=== PATIENT | female | born 1990 | race Hispanic/Latino ===

== ENCOUNTER → 2016-08-29 | Emergency (ER) | payer OTHER ==
[2016-06-09 21:22] VITALS: BMI 23.0
== END | disposition home or self-care (01) ==
LOC: H.EROB2 01:56
DX: O47.1 False labor at or after 37 completed weeks of gestation (principal); Z3A.37 37 weeks gestation of pregnancy

== ENCOUNTER 2016-09-18 05:01 | Emergency (ER) | payer OTHER ==
--- NOTE | 2016-09-18 08:39 | OBHP ---
Datetime: 09/18/2016 06:09 IP Adm Impression: Term, intrauterine IP Admit Plan: Observation/Evaluation; Discharge home Admit Comment, IP Provider: presents with ctx and spotting. denies LOF. Good FM. Prental care at [place]. labs: GBS neg, HIV/ RPR neg neg, gc ct neg. Hbsag neg Exam: 1cm, 25, -2 speculum exam: blood tinged discharge a: IUP at 40+1 wks in early labor. p: observe reassuring FHT discharge home labor precautions given Tamy Greene OB Hospitalist note: This pt was seen and examined by me. Agree with above note. MAHNDO Pelvic Type - PN: Adequate Extremities - PN: Normal Abdomen - PN: Normal Back - PN: Not Done Breast - PN: Not Done Lungs - PN: Normal Heart - PN: Normal Thyroid - PN: Normal Neurologic - PN: Normal HEENT - PN: Normal General - PN: Normal FHR - Baseline A Provider: 130s Membranes, Provider: Intact Contraction Comments Provider: occ Comments, ACOG Physical Exam: bedside u/s vertex presentation ROS: General: no weakness; no fatigue HEENT: no CEVALLOS; no visual dist CV: no palpitations; no no CP GI: noN/V no diarhea No epigastric pain; non radiating : no F/U/D MS: No joint pain Pool Provider: Negative IP Hx Assessment: The History has been Reviewed and is Current EGA AdmitDate IP: 40.1 Vital Signs Provider: Reviewed IP Indication for Induction: Not Applicable IP Chief Complaint: Uterine contractions NICHD Variability Prov Fetus A: Moderate 6-25bpm NICHD Decel Fetus A IP Provider: None Dilatation, Provider: 1 Effacement, Provider: 25 Station, Provider: -2 Genitourinary Exam: Normal DTRs - PN: Normal
--- NOTE | 2016-09-18 08:39 | OBDCSUM ---
Datetime: 09/18/2016 06:22 Discharged to, Provider: Home Follow up at, Provider: [facility] for next scheduled appt Disch Instr Activity: Normal activity Disch Instr Diet: Regular Discharge Diagnosis, Provider: False Labor - Undelivered Discharge Time: 09/18/2016 06:22 Follow up in weeks, Provider: this week Disch Referrals: None
[2016-09-18 14:23] VITALS: BMI 26.9
[2016-09-18] MEDS ORDERED: Lactated Ringer's 1,000 ML IV SCH (14:30)
[2016-09-18 14:55] LABS: BASO # 0.1 K/uL (0.0-0.2); BASO % 0.6 % (0.0-2.0); EOS % 0.3 % (0.0-4.0); HEMATOCRIT 34.6 % (34.0-47.0); LYMPH # 1.9 K/uL (1.0-4.3); LYMPH % 14.2 % (20.0-40.0); MEAN CELL VOLUME 82.6 fl (81.0-99.0); MEAN CORPUSCULAR HEMOGLOBIN 27.5 pg (27.0-31.0); MEAN CORPUSCULAR HGB CONC 33.3 g/dL (33.0-37.0); MEAN PLATELET VOLUME 9.7 fl (7.2-11.7); MONO # 0.7 K/uL (0.0-0.8); MONO % 5.1 % (0.0-10.0); NEUT # 10.9 K/uL (1.8-7.0); NEUT % 79.8 % (50.0-75.0); NRBC % 0.1 % (0.0-0.0); RED CELL DISTRIBUTION WIDTH 15.6 % (11.5-14.5); WHITE BLOOD COUNT 13.7 K/uL (4.8-10.8)
[2016-09-18] MEDS ORDERED: Oxytocin 30 units/LR 500ML 500 ML IV ONE (18:22)
--- NOTE | 2016-09-20 10:57 | OBDCSUM ---
Datetime: 09/20/2016 07:23 Discharged to, Provider: Home Follow up at, Provider: [facility] Disch Instr Activity: Normal activity Disch Instr Diet: Regular Discharge Instructions, Provider: Routine instructions given Discharge Diagnosis, Provider: Term Delivered Discharge Time: 09/20/2016 11:00 Follow up in weeks, Provider: 4-6 weeks Disch Referrals: None Contraception discussed, Prov: No Disch Activity Restrictions: No sexual activity; Nothing in vagina - [place], tampons, douche Discharge Comment, Provider: MISAEL with first degree perineal lacerations. rx for ivelisse [facility] ADDENDUM: Pt seen _ examined by me. Agree w/ above assessment and plan. Perineal care d/w pt. Rx FeSO4 indic d/w pt. Contraception after Delivery: Undecided
== END 2016-09-18 14:30 | disposition home or self-care (01) ==
LOC: H.EROB2 05:01
DX: O47.1 False labor at or after 37 completed weeks of gestation (principal); Z3A.40 40 weeks gestation of pregnancy; O48.0 Post-term pregnancy

== ENCOUNTER 2016-09-18 14:06 | Inpatient (IN) | payer OTHER ==
[2016-09-18 14:19] VITALS: BMI 31.1
[2016-09-18] MEDS: Lactated Ringer's 2,000 ML IV SCH ×2 (14:35→15:30)
[2016-09-18] MEDS ORDERED: Fentanyl/Bupivacaine HCl 250 ML EPI ONE (14:35)
[2016-09-18] MEDS ORDERED: Penicillin G Potassium 5 MU in Sodium Chloride 0.9% 50 ML IVPB ONE (14:53)
--- NOTE | 2016-09-18 16:23 | OBPN ---
Datetime: 09/18/2016 16:16 IP Progress Impression: Normal progression of labor; Reassuring heart rate IP Procedures: Artificial ROM; Sterile Vag Exam IP Progress Plan: Continue present management; Anticipate Vaginal Delivery Vital Signs Provider: Reviewed; Within Normal Limits Dilatation, Provider: 8 Effacement, Provider: 100 Station, Provider: 0 Datetime: 09/18/2016 16:15 Membranes, Provider: Ruptured Amniotic Fluid Color, Provider: Clear Contraction Comments Provider: q6min FHR - Baseline A Provider: 120s-130s IP Progress Note Comment: Pt comfortable s/p epidural. AROM clear fluid. Labor progressing well. Continue current management. Both MWB/FWB reassuring at this time. NICHD Accel Fetus A IP Provider: [id number] FHR Category Provider Fetus A: Category I NICHD Variability Prov Fetus A: Moderate 6-25bpm NICHD Decel Fetus A IP Provider: None Datetime: 09/18/2016 15:53 Gestation - Est Wks by US: 40.1 Presentation-Admit: Vertex Datetime: 09/18/2016 06:09 Pool Provider: Negative
[2016-09-18] MEDS ORDERED: Lactated Ringer's 1,000 ML IV SCH (16:30)
[2016-09-18] MEDS ORDERED: Lidocaine 1% Inj (20ml) ONE (16:33)
[2016-09-18] MEDS ORDERED: Oxytocin 30 units/LR 500ML 500 ML IV SCH (18:50)
[2016-09-19] MEDS: Benzocaine/Menthol SPRAY TOP PRN ×2 (04:30→08:36)
[2016-09-19] MEDS: Multivitamin With Minerals Tab PO SCH (10:45)
--- NOTE | 2016-09-19 10:48 | OBDS ---
DELIVERY PERSONNEL Nurse Junior Software Engineer Certified: evette Delivery Doctor: Isabel Dennison MD Scrub Nurse: evette Photostat Operator Helper: Juliette Lam RN/Martín Florentino Anesthesiologist: John Montes MD Campus Wellness Coordinator: evette Resident: MATERNAL INFORMATION Delivery Anesthesia: Local; Epidural Medications in Delivery: Pitocin 30 units in 500 cc LR Estimated Blood Loss (ml): 200 Placenta Cultured: No Maternal Complications: None RN Comments: NVSD tolerated well by pt.Delivery attended by and (resident) Provider Comments: Normal spontaneous vaginal delivery. Patient delivered viable male with Apgars of 9 and 9 at one and 5 minutes respectively via TAWANDA position. Placenta delivered spontaneously. Lacerations repaired, as above. Uterus firm and appro priately hemostatic following delivery. No complications. Patient tolerated delivery and repair well. EBL 200 mL LABOR SUMMARY EDC: 09/17/2016 00:00 No. Babies in Womb: 0 Attempted: No Labor Anesthesia: Epidural LABOR INFORMATION Reason for Induction: Not Applicable Onset of Labor: 09/18/2016 12:00 Complete Dilatation: 09/18/2016 18:23 Oxytocin: N/A Group B Beta Strep: Negative Antibiotics # of Doses: 1 Antibiotics Time of Last Dose: 1538 Steroids Given: None Reason Steroids Not Administered: Not Applicable MEMBRANES Membranes Rupture Method: Artificial Rupture of Membranes: 09/18/2016 16:15 Length of Rupture (hrs): 2.55 Amniotic Fluid Color: Clear Amniotic Fluid Amount: Moderate Amniotic Fluid Odor: Normal STAGES OF LABOR Stage 1 hrs: 6 Stage 1 min: 23 Stage 2 hrs: 0 Stage 2 min: 25 Stage 3 hrs: 0 Stage 3 min: 2 Total Time in Labor hrs: 6 Total Time in Labor min: 50 VAGINAL DELIVERY Episiotomy: None Laceration Extension: First Degree Laceration Type: Perineal Laceration Repair: Yes Laceration Repair Note: Bilateral first-degree vaginal lacerations. Areas infiltrated with 1% lidoca ine. Lacerations repaired with 2. 0 repeat without complication. Patient tolerated repair well Initial Vag Sponge Count: 25 Final Vag Sponge Count: 25 Initial Vag Sharps Count: 4 Final Vag Sharps Count: 4 Sponge Count Correct: Yes Sharps Count Correct: Yes BABY A INFORMATION Infant Delivery Date/Time: 09/18/2016 18:48 Method of Delivery: Vaginal Born in Route : No : N/A Forceps: N/A Vacuum Extraction: N/A Shoulder Dystocia : No SHOULDER DYSTOCIA BABY A Delivery Date/Time: 09/18/2016 18:48 PRESENTATION/POSITION BABY A Presentation: Cephalic Breech Presentation: N/A PLACENTA INFORMATION BABY A Placenta Delivery Time : 09/18/2016 18:50 Placenta Method of Delivery: Spontaneous Placenta Status: Delivered SCORES BABY A Heart Rate 1 min: >100 bpm Resp Effort 1 min: Good Cry Reflex Irritability 1 min: Cough or Sneeze or Pulls Away Muscle Tone 1 min: Active Motion Color 1 min: Body [place], Extremities Blue Resuscitation Effort 1 min: Tactile Stimulation SCORE 1 MIN: 9 Heart Rate 5 min: >100 bpm Resp Effort 5 min: Good Cry Reflex Irritability 5 min: Cough or Sneeze or Pulls Away Muscle Tone 5 min: Active Motion Color 5 min: Body [place], Extremities Blue Resuscitation Effort 5 min: Tactile Stimulation SCORE 5 MIN: 9 INFANT INFORMATION BABY A Gestational Age at Delivery: 40.2 Gestational Status: Term Infant Outcome : Liveborn Condition : Stable Infant Sex: Male IDENTIFICATION/MEDS BABY A ID Band Number: [id number] ID Band Location: Left Leg; Left Arm Vitamin K Given : Not Given Erythromycin Given: Not Given WEIGHT/LENGTH BABY A Infant Birthweight (gms): 3195 Weight (lb): 7 Weight (oz): 1 CORD INFORMATION BABY A No. Cord Vessels: 3 Nuchal Cord : N/A Nuchal Cord Other: na True Knot: na Cord pH Baby Arterial: na Infant Cord pH Baby Venous: na Cord Blood Taken: Yes Banking/Donate Info: na Suction: Mouth ASSESSMENT BABY A Complications: None Physical Findings at Delivery: Within Normal Limits Respirations: Appears Normal Completions Engineer/ALS Called : No Transferred To: Nursery
[2016-09-19 12:07] LABS: BASO # 0.1 K/uL (0.0-0.2); BASO % 0.4 % (0.0-2.0); EOS # 0.1 K/uL (0.0-0.7); EOS % 0.5 % (0.0-4.0); HEMATOCRIT 28.2 % (34.0-47.0); LYMPH # 1.8 K/uL (1.0-4.3); LYMPH % 13.4 % (20.0-40.0); MEAN CELL VOLUME 83.3 fl (81.0-99.0); MEAN CORPUSCULAR HEMOGLOBIN 28.2 pg (27.0-31.0); MEAN CORPUSCULAR HGB CONC 33.8 g/dL (33.0-37.0); MEAN PLATELET VOLUME 9.1 fl (7.2-11.7); MONO # 0.8 K/uL (0.0-0.8); MONO % 6.2 % (0.0-10.0); NEUT % 79.5 % (50.0-75.0); RED CELL DISTRIBUTION WIDTH 15.9 % (11.5-14.5); WHITE BLOOD COUNT 13.8 K/uL (4.8-10.8)
--- NOTE | 2016-09-19 12:30 | OBPPN ---
Datetime: 09/19/2016 07:47 PP Pain Prov: Within normal limits PP Nausea Prov: Denies PP Flatus Prov: Yes PP BM Prov: No PP Heart Prov: Normal PP Lungs Prov: Normal PP Abdomen/Uterus Prov: Normal PP Lochia Prov: Normal PP C/S Incision Prov: Not Applicable PP Progress Prov: Not Applicable PP Impression Prov: Normal progression PP Plan Prov: Continue present management PP Progress Note Prov: PPD#1 Patient was seen and examined at bedside this morning. Patient feels well, and was finishing her b reakfast at the time of evaluation. Reports that lower abdominal pain is mild and well controlled wit h oral pain medications, does not have pain at present. Tolerating regular diet. Voiding well, passin g gas, but has not yet had a bowel movement. Ambulating on her own without complains. Lochia are like menses, no foul-smeliing. Baby is bottle feeding, but Mom wants to start breast feeding today. O: as above Abd: soft, mild distended, no tender to palpation, no rigidity or guarding. Uterus firm below umbi licus. +BS. Ext: no edema, pulses present bilateral, Fareed's sign negative bilateral. A:26 y/o s/p with first degree perineal laceration on PPD#1 with normal progressio n, no . P: Continue with current management -Pain management -Encourage breast feeding. consult. -Encourage good hydration and ambulation -F/U pCBC -F/U circumcision before DC -Anticipated DC on 09/20/16 Ene Benavides PGY1 Addendum by Dr. Kelsey: Patient evaluated independently by myself and I agree with the above. patie nt doing well, continue care, for discharge tomorrow IP PP Procedures: None Vital Signs Provider PP: Reviewed; Within Normal Limits
[2016-09-20] MEDS: Multivitamin With Minerals Tab PO SCH (09:12)
== END 2016-09-20 15:00 | disposition home or self-care (01) | DRG 373 ==
LOC: H.EROB2 14:06 → H.L&D 14:23 → H.OB/GYN 22:17
PROVIDERS: ADMIT Obstetrics & Gynecology; ATTEND Obstetrics & Gynecology
PROC: 10E0XZZ Delivery of Products of Conception, External Approach (ICD-10-PCS; principal; 2016-09-18)
PROC: 4A1HXCZ Monitoring of Products of Conception, Cardiac Rate, External Approach (ICD-10-PCS; 2016-09-18)
PROC: 0HQ9XZZ Repair Perineum Skin, External Approach (ICD-10-PCS; 2016-09-18)
DX: O48.0 Post-term pregnancy (principal); O70.0 First degree perineal laceration during delivery; Z3A.40 40 weeks gestation of pregnancy; Z37.0 Single live birth